=== PATIENT | male | born 1980 | race Caucasian/White ===

== ENCOUNTER 2020-12-29 08:57 | Emergency (ER) | payer OTHER ==
[2020-12-29 09:43] LABS: BASOPHIL 0.7 % (0-2); HCT 51.2 % (42.0-52.0); LYMPHOCYTE 36.9 % (15-48); MCH 31.4 pg (25.0-31.0); MCHC 33.2 g/dL (32.0-36.0); MCV 94.5 fL (78.0-100.0); MONOCYTE 8.7 % (0-12); MPV 10.9 fL (6.0-9.5); NEUTROPHIL 50.5 % (41-80); NRBC 0; PLT 185 K/uL (150-400); RBC 5.42 M/uL (4.70-6.00); RDW 13.2 % (11.5-14.0); WBC 5.8 K/uL (4.0-10.5)
[2020-12-29 09:44] LABS: BILIRUBIN 1+ mg/dL (NEGATIVE); BLOOD 3+ Ery/uL (NEGATIVE); GLUCOSE (U) NORMAL (NORMAL); LEUKOCYTES NEGATIVE Leu/uL (NEGATIVE); NITRITE POSITIVE (NEGATIVE); PROTEIN 1+ mg/dL (NEGATIVE); SPECIFIC GRAVITY >=1.030 (1.001-1.030)
[2020-12-29 09:45] LABS: CLARITY HAZY (CLEAR); COLOR RED (YELLOW)
[2020-12-29 09:58] LABS: ALBUMIN 4.1 g/dL (3.4-5.0); BILIRUBIN - TOTAL 0.4 mg/dL (0.2-1.0); BUN/CREAT RATIO (CALC) 12.6 RATIO; CREATININE 1.03 mg/dL (0.67-1.17); GLOBULIN (CALCULATION) 3.5 g/dL; POTASSIUM 3.6 mmol/L (3.5-5.1); TOTAL PROTEIN 7.6 g/dL (6.4-8.2)
[2020-12-29 10:04] LABS: BACTERIA TRACE; URINARY RBC TNTC; URINARY WBC RARE
[2020-12-29] MEDS ORDERED: BACTRIM DS TAB1 EACH PO (10:23)
[2020-12-29] MEDS ORDERED: NAPROXEN500 MG PO (10:23)
== END 2020-12-29 13:00 | disposition home or self-care (01) ==
LOC: FER 08:57
PROVIDERS: Emergency Medicine
DX: N20.0 Calculus of kidney (principal); N21.0 Calculus in bladder
CPT/HCPCS: 36415; 80053; 81001; 85025; J1885; J7030